=== PATIENT | female | born 1950 | race Caucasian/White ===

== ENCOUNTER 2016-10-25 11:22 | Inpatient (IN) | payer MEDICARE, MEDICAID ==
[~2016-10-25] VITALS: Ht 139.7 cm; Wt 105.7 kg
--- NOTE | 2016-10-25 11:43 | NUR ---
PT MAKING PHONE CAll.
[2016-10-25] MEDS ORDERED: GABA-532 PO (11:51)
[2016-10-25] MEDS ORDERED: LOSA25TA3 PO (11:51)
[2016-10-25] MEDS ORDERED: CLOP75TA15 PO (11:51)
[2016-10-25] MEDS ORDERED: ESCI10TA PO (11:51)
[2016-10-25] MEDS ORDERED: CHOL500050 PO (11:51)
[2016-10-25] MEDS ORDERED: MONT10TA22 PO (11:51)
[2016-10-25] MEDS ORDERED: ASPI-605 PO (11:51)
[2016-10-25] MEDS ORDERED: LOSA25TA13 PO (11:51)
[2016-10-25] MEDS ORDERED: BUPR300T52 PO (11:51)
[2016-10-25] MEDS ORDERED: CYAN100T3 PO (11:51)
[2016-10-25 12:15] LABS: BASOPHILS % (AUTO) 0.4 % (0.0-2.0); EOSINOPHILS # (AUTO) 0.2 K/uL (0.0-0.7); EOSINOPHILS % (AUTO) 3.1 % (0.0-7.0); HEMOGLOBIN 13.2 G/DL (12.0-16.0); LYMPHOCYTES % (AUTO) 14.2 % (20.5-51.5); MEAN CORPUSCULAR HGB CONC 32 g/dL (32.0-37.0); MONOCYTES # (AUTO) 0.6 K/UL (0.1-1.30); MONOCYTES % (AUTO) 8.1 % (0.0-11.0); NEUTROPHILS # (AUTO) 5.3 K/UL (1.8-8.9); NEUTROPHILS % (AUTO) 74.2 % (38.5-71.5); PLATELET COUNT (AUTO) 261 K/UL (150-450); RED BLOOD CELL COUNT(AUTO) 4.71 MIL/UL (4.2-5.4); WHITE BLOOD COUNT (AUTO) 7.1 K/UL (4.0-11.2)
[2016-10-25 12:31] LABS: ETHANOL < 3 MG/DL (0-0)
--- NOTE | 2016-10-25 12:31 | NUR ---
hospital tray provided for pt
[2016-10-25 12:33] LABS: CARBON DIOXIDE 32 mmol/L (21-32); CHLORIDE 104 mmol/L (98-107); CREATININE 0.7 mg/dL (0.6-1.3); GLUCOSE 96 mg/dL (74-106); POTASSIUM 4.6 mmol/L (3.5-5.1); UREA NITROGEN, BLOOD 12 mg/dL (7-18)
[2016-10-25 12:49] LABS: ALANINE AMINOTRANSFERASE 34 U/L (14-59); ALKALINE PHOSPHATASE 59 U/L (50-136); ASPARTATE AMINOTRANSFERASE 24 U/L (15-37); BILIRUBIN,DIRECT 0.1 mg/dL (0.0-0.2); BILIRUBIN,TOTAL 0.2 mg/dL (0.2-1.0); TOTAL PROTEIN, SERUM 7.8 g/dL (6.4-8.2)
[2016-10-25 12:50] LABS: ACETAMINOPHEN < 2.0 ug/mL (10-30)
--- NOTE | 2016-10-25 12:59 | NUR ---
called the guard supervisor for sitter. no sitter available at this point. have to call security
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
[2016-10-25] MEDS ORDERED: MAG HYDROX/AL HYDROX/SIMETH 30 ML LIQUID UDC PO PRN (13:45)
[2016-10-25] MEDS ORDERED: LORAZEPAM 0.5 MG TABLET PO PRN (13:45)
[2016-10-25] MEDS ORDERED: ZOLPIDEM 5 MG TABLET PO PRN (13:45)
[2016-10-25] MEDS ORDERED: MAGNESIUM HYDROXIDE 30 ML LIQUID UDC PO PRN (13:45)
[2016-10-25] MEDS ORDERED: Medication Not On Formulary EA (Cholecalciferol (Vitamin D3) (Vitamin D3 CAPSULE) 50,000 PO SCH (14:30)
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
[2016-10-25] MEDS ORDERED: GABAPENTIN 100 MG CAPSULE PO SCH (17:00)
[2016-10-25] MEDS: PATIENT MAY USE OWN MED- MD OK PO SCH (18:16)
--- NOTE | 2016-10-25 19:24 | NUR ---
PT STRONGLY REFUSED BLOOD DRAW FOR TROPONIN DESPITE ENCOURAGEMENT.
[2016-10-25 19:53] VITALS: BP 112/59
[2016-10-26] MEDS: ACETAMINOPHEN 325 MG TABLET PO PRN ×2 (04:17→10:19)
[2016-10-26 07:30] VITALS: BP 134/92
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
[2016-10-26] MEDS: ASPIRIN EC 81 MG TABLET.DR PO SCH (08:46)
[2016-10-26] MEDS: CYANOCOBALAMIN 100 MCG TABLET PO SCH (08:47)
[2016-10-26] MEDS: MONTELUKAST SODIUM 10 MG TABLET PO SCH (08:47)
[2016-10-26] MEDS: CLOPIDOGREL 75 MG TABLET PO SCH (08:47)
[2016-10-26] MEDS: LOSARTAN POTASSIUM 25 MG TABLET PO SCH (08:47)
[2016-10-26] MEDS: PATIENT MAY USE OWN MED- MD OK PO SCH ×3 (08:49→17:00)
--- NOTE | 2016-10-26 10:20 | NUR ---
RECEIVED A CALL FROM PT'S NIECE ARMEN, ASKING TO SPEAK TO DR. VELASQUEZ. WILL SPEAK TO DR VELASQUEZ ABOUT PT'S PERMISSION REGARDING INFORMATION RELEASE. ARMEN ALSO WANTED TO KNOW LAST NAMES OF YESTERDAYS NURSE WELL MACHINE LONG GOODS HELPER. MACHINE LONG GOODS HELPER WILL NOT DIVULGE. SPOKE TO PT, STATED SHE REFUSES TO ALLOW ANY DISCLOSURE OF INFORMATION OR COMMUNICATION WITH ANYONE BUT HERSELF AND STAFF. "I DO NOT GIVE PERMISSION FOR ANYONE TO DISCUSS ANYTHING ABOUT ME." PT STATES SHE DOES NOT LIKE HER NIECE BECAUSE SHE "PINCHES HER DAUGHTER AND LAUGHS ABOUT IT."
[2016-10-26 15:33] VITALS: BP 122/70
[2016-10-26 20:06] VITALS: BP 105/59
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
[2016-10-27 07:30] VITALS: BP 125/76
[2016-10-27] MEDS: PATIENT MAY USE OWN MED- MD OK PO SCH (09:00)
[2016-10-27] MEDS: MONTELUKAST SODIUM 10 MG TABLET PO SCH (09:00)
[2016-10-27 09:38] VITALS: BP 125/76
[2016-10-27] MEDS: ASPIRIN EC 81 MG TABLET.DR PO SCH (09:38)
[2016-10-27] MEDS: LOSARTAN POTASSIUM 25 MG TABLET PO SCH (09:38)
[2016-10-27] MEDS: CYANOCOBALAMIN 100 MCG TABLET PO SCH (09:38)
[2016-10-27] MEDS: CLOPIDOGREL 75 MG TABLET PO SCH (09:38)
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
[2016-10-31] MEDS ORDERED: ERGOCALCIFEROL 50,000 UNIT CAPSULE PO SCH (09:00)
== END 2016-10-27 12:30 | disposition left against medical advice (07) | DRG 885 ==
LOC: ER 11:22 → GPS 13:22
PROVIDERS: ADMIT Psychiatry & Neurology Psychiatry; ATTEND Internal Medicine
DX: F39 Unspecified mood [affective] disorder (principal); Z68.43 Body mass index [BMI] 50.0-59.9, adult; E78.5 Hyperlipidemia, unspecified; E66.01 Morbid (severe) obesity due to excess calories; I11.9 Hypertensive heart disease without heart failure; I25.10 Atherosclerotic heart disease of native coronary artery without angina pectoris; Z95.5 Presence of coronary angioplasty implant and graft; E03.9 Hypothyroidism, unspecified; Z79.02 Long term (current) use of antithrombotics/antiplatelets; Z87.820 Personal history of traumatic brain injury; F41.9 Anxiety disorder, unspecified; Z82.3 Family history of stroke
CPT/HCPCS: 36415; 70030-TC; 84443; 85025; 93005; G0480; G0480-TC